=== PATIENT | female | born 1955 | race Caucasian/White ===

== ENCOUNTER 2016-12-20 05:43 | Emergency (ER) | payer OTHER ==
[2016-12-20] MEDS ORDERED: Sodium Chloride 0.9% 1000 ML 1,000 ML IV STA (06:15)
[2016-12-20] MEDS ORDERED: Sodium Chloride 0.9% 1000 ML 1,000 ML ONE (06:20)
--- NOTE | 2016-12-20 06:22 | ERPHSYRPT ---
- History of Present Illness Historian: patient Exam Limitations: no limitations Patient Subjective Stated Complaint: explosive diarrhea sinc e tuesday.. seen at urgent care on tuesday for same. states was a virus. no improvement since then. abdominal cramping, fever. Triage Nursing Assessment: arrives alert and oriented.. color pale, skin warm and dry. abdomen soft with + BS x4. cramping to mid abdomen. staets has had fever yesterday. states nausea with out vomiting. diarrhea is mucousy. Hx Tetanus, Diphtheria Vaccination/Date Given: Yes (2009) Hx Influenza Vaccination/Date Given: Yes Hx Pneumococcal Vaccination/Date Given: No Immunizations Up to Date: Yes <ANGEL YANG - Last Filed: 12/20/16 07:08> <ANGEL EDMOND - Last Filed: 12/20/16 07:50> - History of Present Illness Time Seen by Provider: 12/20/16 06:10 Physician History: FOR THE PAST 5 DAYS PT HAS HAD DECREASED APPETITE, SHARP DIFFUSE ABDOMINAL PAIN , NAUSEA, DIAPHORESIS, FRONTAL HEADACHE AND DIARRHEA WITH MUCOUS BUT WITHOUT BLOOD; FOR THE PAST 2 DAYS FEVER UP TO 101 DEGREES. (ANGEL YANG) Allergies/Adverse Reactions: acetaminophen [From Vicodin] Adverse Reaction (Mild, Verified 12/20/16 06:28) hydrocodone bitartrate [From Vicodin] Adverse Reaction (Mild, Verified 12/20/16 06:28) Home Medications: Aspirin [Aspir 81] 81 mg PO DAILY 09/29/11 [History] Atorvastatin Calcium [Lipitor 40Mg] 40 mg PO DAILY 06/28/15 [History] Clopidogrel Bisulfate 75 mg [PLAVIX 75 MG Tablet] 75 mg PO DAILY 06/28/15 [History] Glimepiride [Amaryl] 1 mg PO DAILY 12/20/16 [History] Lisinopril [Zestril] 2.5 mg PO DAILY 12/20/16 [History] Loratadine 10 mg [Claritin 10 mg] 10 mg PO DAILY 12/20/16 [History] Metoprolol Tartrate 25 mg PO BID 12/20/16 [History] - Review of Systems Constitutional: Fever, No Chills Respiratory: No Dyspnea Cardiac: No Chest Pain Abdominal/Gastrointestinal: Abdominal Pain, Nausea, Diarrhea, Appetite Changes ( DECREASED), No Vomiting Neurological: Headache Endocrine: Excessive Sweating All Other Systems: Reviewed and Negative <ANGEL YANG - Last Filed: 12/20/16 07:08> - Past Medical History Pertinent Past Medical History: Yes Neurological History: No Pertinent History ENT History: No Pertinent History Cardiac History: Hypertension, Myocardial Infarction ([place]) Respiratory History: No Pertinent History Endocrine Medical History: Diabetes Type II Musculoskeletal History: No Pertinent History, Arthritis GI Medical History: GERD History: No Pertinent History Psycho-Social History: No Pertinent History Female Reproductive Disorders: No Pertinent History - Past Surgical History Past Surgical History: Yes Neuro Surgical History: No Pertinent History Cardiac: Cardiac Catheterization, Cardiac Stent Respiratory: No Pertinent History Gastrointestinal: No Pertinent History Genitourinary: No Pertinent History Musculoskeletal: Joint Replacement Female Surgical History: Section, Tubal Ligation Other Surgical History: RIGHT HIP REPLACMENT left hip replacement - Social History Smoking Status: Never smoker How long have you smoked: 40 Exposure to second hand smoke: Yes Drug Use: none Patient Lives Alone: Yes - Female History Hx Now: No <ANGEL YANG - Last Filed: 12/20/16 07:08> - Physical Exam General Appearance: alert Eye Exam: PERRL/EOMI Ears, Nose, Throat Exam: dry mucous membranes, other (CERUMEN OCCLUSION OF LEFT EAC) Neck Exam: normal inspection Respiratory Exam: wheezing (SCATTERED WHEEZING) Cardiovascular Exam: normal heart sounds Gastrointestinal/Abdomen Exam: soft, other (B.S. MILDLY HYPERACTIVE AND NORMOTONIC) Back Exam: normal range of motion Extremity Exam: normal inspection Neurologic Exam: alert, cooperative Skin Exam: warm, dry SpO2 Interpretation: normal SpO2: 95 Oxygen Delivery: Room Air <ANGEL YANG - Last Filed: 12/20/16 07:08> <ANGEL EDMOND - Last Filed: 12/20/16 07:50> - Nursing Vital Signs Nursing Vital Signs: Initial Vital Signs Temperature 98.6 F 12/20/16 05:44 Respiratory Rate 18 12/20/16 05:44 Blood Pressure 151/76 12/20/16 05:44 O2 Sat by Pulse Oximetry 95 12/20/16 05:44 Pain Scale Pain Intensity 8 - Course Nursing assessment & vital signs reviewed: Yes <ANGEL YANG - Last Filed: 12/20/16 07:08> - CT Exams Abdomen/Pelvis CT Interpretation: Tele-radiologist Report, Other (minimal wall thickening in ascending, transverse, and descending colon with stranding concerning for colitits per Dr Emanuel.) <ANGEL EDMOND - Last Filed: 12/20/16 07:50> Ordered Tests: Active Orders 24 hr Category Date Time Status IV Insertion STAT Care 12/20/16 06:15 Active ABDOMEN AND PELVIS W/0 CONTRAS [CT] Stat Exams 12/20/16 06:16 Taken CHEST 2 VIEWS (PA AND LAT) Stat Exams 12/20/16 Taken AMYLASE Stat Lab 12/20/16 06:00 Completed CBC W DIFF Stat Lab 12/20/16 06:00 Completed CMP Stat Lab 12/20/16 06:00 Completed LIPASE Stat Lab 12/20/16 06:00 Completed MAG [MAGNESIUM] Stat Lab 12/20/16 06:00 Completed Manual Differential NC Stat Lab 12/20/16 06:00 Completed Occult Blood,Stool Other Stat Lab 12/20/16 06:44 Ordered UA W/RFX UR CULTURE Stat Lab 12/20/16 06:16 Ordered Respiratory Nebulizer STAT RT 12/20/16 07:09 Completed Medication Summary Generic Name Dose Route Start Last Admin Trade Name Freq PRN Reason Stop Dose Admin Potassium Chloride/Sodium Chloride 1,000 mls @ 500 mls/hr 12/20/16 07:00 07:09 Sodium Chloride 0.9% W/ 20 Meq Kcl/Liter IV 01/19/17 06:59 500 mls/hr .Q2H MARGARITA Administration Metronidazole 500 mg in 100 mls @ 200 mls/hr 12/20/16 07:33 Flagyl 500 Mg Ivpb IV 12/20/16 08:02 STAT STA Metronidazole 500 mg in 100 mls @ 200 mls/hr 12/20/16 07:35 Flagyl 500 Mg Ivpb IV 12/20/16 08:04 STAT STA Discontinued Medications Generic Name Dose Route Start Last Admin Trade Name Freq PRN Reason Stop Dose Admin Sodium Chloride 1,000 mls @ 999 mls/hr 12/20/16 06:15 12/20/16 06:22 Sodium Chloride 0.9% 1000 Ml IV 12/20/16 07:15 999 mls/hr .Q1H1M STA Administration Sodium Chloride Confirm 12/20/16 06:20 Sodium Chloride 0.9% 1000 Ml Administered 12/20/16 06:21 Dose 1,000 mls @ ud .ROUTE .STK-MED ONE Magnesium Sulfate/Dextrose 100 mls @ 200 mls/hr 12/20/16 07:00 12/20/16 07:09 Magnesium 1 Gm / 100 Ml D5w IV 12/20/16 07:29 200 mls/hr STAT ONE Administration Magnesium Sulfate/Dextrose Confirm 12/20/16 07:07 Magnesium 1 Gm / 100 Ml D5w Administered 12/20/16 07:08 Dose 100 mls @ ud IV .STK-MED ONE Levalbuterol HCl 1.25 mg 12/20/16 06:39 12/20/16 07:04 Xopenex 1.25 Mg/0.5 Ml Ud Nebule IH 12/20/16 06:40 1.25 mg STAT ONE Administration Levalbuterol HCl Confirm 12/20/16 07:02 Xopenex 1.25 Mg/0.5 Ml Ud Nebule Administered 12/20/16 07:03 Dose 1.25 mg IH .STK-MED ONE Ondansetron HCl 4 mg 12/20/16 07:36 Zofran 4 Mg/2 Ml Vial IV 12/20/16 07:37 STAT ONE Sodium Chloride Confirm 12/20/16 07:03 Sodium Chloride 3 Ml Ud Nebules Administered 12/20/16 07:04 Dose 3 ml IH .STK-MED ONE Lab/Rad Data: Laboratory Result Diagrams 12/20/16 06:00 12/20/16 06:00 Laboratory Results 12/20/16 12/20/16 12/20/16 Range/Units 06:00 06:00 06:00 WBC 9.5 (4.0-10.5) K/mm3 RBC 4.02 L (4.1-5.4) M/mm3 Hgb 11.9 L (12.0-16.0) gm/dl Hct 35.9 (35-47) % MCV 89.3 (78-100) fl MCH 29.6 (26-32) pg MCHC 33.1 (32-36) g/dl RDW 13.9 (11.5-14.0) % Plt Count 248 (150-450) K/mm3 MPV 10.7 H (6-9.5) fl Segmented Neutrophils 71 H (36.0-66.0) % Band Neutrophils 5 H (0.0-2.0) % Lymphocytes (Manual) 20 L (24-44) % Monocytes (Manual) 4 (0.0-12.0) % Differential Comment ABNORMAL Toxic Granulation 1+ Platelet Estimate NORMAL (NORMAL) Poikilocytosis 1+ Sodium 139 (136-145) mEq/L Potassium 3.1 L (3.5-5.1) mEq/L Chloride 102 (98-107) mEq/L Carbon Dioxide 23.6 (21-32) mEq/L Anion Gap 16.9 H (5-15) MEQ/L BUN 8 L (9-20) mg/dL Creatinine 1.01 (0.55-1.30) mg/dl Estimated GFR 59 ML/MIN Glucose 114 H (70-110) MG/DL Calcium 9.0 (8.5-10.1) mg/dL Magnesium 1.2 L (1.8-2.4) mg/dL Total Bilirubin 0.30 (0.2-1.0) mg/dL AST 19 (15-37) U/L ALT 32 (12-78) U/L Alkaline Phosphatase 72 (46-116) U/L Serum Total Protein 7.1 (6.4-8.2) gm/dL Albumin 3.1 L (3.4-5.0) g/dL Amylase 32 (25-115) U/L Lipase 104 (73-393) U/L <ANGEL YANG - Last Filed: 12/20/16 07:08> - Progress Progress: unchanged Counseled pt/family regarding: lab results, diagnosis, need for follow-up, rad results <ANGEL EDMOND - Last Filed: 12/20/16 07:50> - Progress Progress Note: 12/20/16 07:25 Pt care discussed and care accepted from Dr Yang at 07:00. (ANGEL EDMOND) <ANGEL YANG - Last Filed: 12/20/16 07:08> - Departure Time of Disposition: 07:50 Departure Disposition: Home Critical Care Time: No <ANGEL EDMOND - Last Filed: 12/20/16 07:50> - Departure Clinical Impression: Colitis, Hypokalemia, Hypomagnesemia, Wheezing Condition: Stable Referrals: YUDITH FARRELL [Primary Care Provider] - Additional Instructions: Your diarrhea is caused by colitis. You were given metronidazole 1000 mg by IV. Your magnesium level and potassium level were also slightly low. You were given magnesium 1 g and potassium by IV. You were also given Zofran 4 mg by IV. Take metronidazole 500 mg 3 times a day for 10 days. Take Zofran 4 mg ODT every 6 hours as needed. You also had wheezing in her lungs. You were given a breathing treatment in the ER. Follow-up in one to 2 days. Prescriptions: Ondansetron ODT 4 MG [Zofran Odt 4 mg] 1 tab PO Q6H PRN PRN #10 tab.rapdis PRN Reason: Nausea/Vomiting Metronidazole 500 mg PO TID #30 tablet
[2016-12-20 06:25] LABS: Mean Cell Volume 89.3 fl (78-100); Mean Corpuscular Hemoglobin 29.6 pg (26-32); Mean Platelet Volume 10.7 fl (6-9.5); Platelet Count 248 K/mm3 (150-450); Red Blood Count 4.02 M/mm3 (4.1-5.4); Red Cell Distribution Width 13.9 % (11.5-14.0); White Blood Count 9.5 K/mm3 (4.0-10.5)
[2016-12-20] MEDS ORDERED: Xopenex 1.25 MG/0.5 ML UD NEBULE IH ONE ×2 (06:39→07:02)
[2016-12-20 06:41] LABS: ALBUMIN 3.1 g/dL (3.4-5.0); ANION GAP 16.9 MEQ/L (5-15); BILIRUBIN,TOTAL 0.3 mg/dL (0.2-1.0); Carbon Dioxide 23.6 mEq/L (21-32); Potassium 3.1 mEq/L (3.5-5.1); Total Protein 7.1 gm/dL (6.4-8.2)
[2016-12-20 06:45] LABS: BAND 5 % (0.0-2.0); Total Cells Counted 100
[2016-12-20 06:46] LABS: Poikilocytosis 1+
[2016-12-20 06:47] LABS: Platelet Estimate NORMAL (NORMAL); Toxic Granulation 1+
[2016-12-20] MEDS ORDERED: Magnesium 1 Gm / 100 Ml D5W*** 100 ML IV ONE ×2 (07:00→07:07)
[2016-12-20] MEDS ORDERED: Sodium Chloride 0.9% W/ 20 mEq KCl/LITER 1,000 ML IV SCH (07:00)
[2016-12-20] MEDS ORDERED: Sodium Chloride 3 ML UD NEBULES IH ONE (07:03)
[2016-12-20] MEDS ORDERED: Sodium Chloride 0.9% W/ 20 mEq KCl/LITER 1,000 ML IV ONE (07:08)
[2016-12-20] MEDS ORDERED: FLAGYL 500 MG IVPB 500 MG/100 ML BAG IV STA ×2 (07:33→07:35)
[2016-12-20] MEDS ORDERED: Zofran 4 MG/2 ML VIAL IV ONE (07:36)
[2016-12-20] MEDS ORDERED: Zofran 4 MG/2 ML VIAL ONE (07:41)
[2016-12-20] MEDS ORDERED: FLAGYL IV ONE (07:41)
--- NOTE | 2016-12-20 08:47 | XRAY ---
Indication: Nausea, vomiting, diarrhea, fever, wheezing, and weakness. Comparison: June 28, 2015. PA/lateral chest again hyperinflated with stable noncalcified indeterminant right upper lobe noncalcified nodule. Remaining heart and lungs normal. Bony thorax intact. Impression: Stable indeterminate right upper lobe nodule detailed on CT chest December 16, 2014. No new/acute findings.
--- NOTE | 2016-12-20 08:50 | XRAY ---
Indication: Mid abdominal pain, fever, nausea, vomiting, diarrhea, and weakness. Multiple contiguous axial images obtained through the abdomen and pelvis without contrast as ordered. Comparison: None Minimal fibrosis/scarring in both lung bases. Heart is not enlarged. Noncontrasted stomach and bowel loops appear nonobstructed. There is minimal colonic wall thickening with minimal stranding greatest in the right hemicolon concerning for colitis. Minimal sigmoid diverticulosis. Normal air-filled appendix. No free fluid/air. Bilateral hip prosthesis produces extreme beam artifact limiting these levels. Gallbladder is distended with tiny gallstone/gravel. Remaining liver, pancreas, spleen, adrenal glands, kidneys, ureters, bladder, uterus appear unremarkable for noncontrast exam. Mild scattered vascular calcifications. No AAA. Osseous structures intact with moderate degenerative changes throughout the spine including L4 3-4 mm spondylolisthesis without spondylolysis. Impression: 1. Minimal colonic wall thickening/stranding. Rule out colitis. 2. Distended gallbladder with tiny gallstones/gravel. Gallbladder sonogram may yield further information if clinically warranted. 3. Minimal sigmoid diverticulosis. 4. L4 grade [address] DI 23.40
[2016-12-20 09:24] VITALS: BP 140/77; PULSE 70; O2SAT 98
[2016-12-20 10:22] LABS: Bilirubin NEGATIVE (NEGATIVE); Blood 50 Ery/ul (0-5); COMPLETE URINE MICROSCOPIC? YES; Collection Type VOID; Glucose NEGATIVE (NEGATIVE); Leukocyte Esterase TRACE (NEGATIVE)
[2016-12-20 10:23] LABS: ADD URINE CULTURE? YES (NO); Bacteria FEW /HPF (NEGATIVE); Epithelial Cells FEW /HPF (FEW); Mucus SLIGHT /HPF (NEGATIVE)
== END 2016-12-20 09:28 | disposition home or self-care (01) ==
LOC: ED 05:43
DX: K52.9 Noninfective gastroenteritis and colitis, unspecified (principal); E87.6 Hypokalemia; E83.42 Hypomagnesemia; R06.2 Wheezing; R19.7 Diarrhea, unspecified; R11.0 Nausea; R51 Headache; R50.9 Fever, unspecified; R61 Generalized hyperhidrosis; R10.9 Unspecified abdominal pain; R63.0 Anorexia; Z79.899 Other long term (current) drug therapy; E11.9 Type 2 diabetes mellitus without complications; I10 Essential (primary) hypertension; I25.2 Old myocardial infarction; Z98.61 Coronary angioplasty status
CPT/HCPCS: 36000; 36415; 71020; 74176; 80053; 81000; 82150; 82272; 83690; 83735; 85025; 87086; 94640; 96360; 96361; 96365; 96367; 96368; 96374; 99284; J2405; J3475; A9270-GY

== ENCOUNTER 2018-03-14 12:28 | Emergency (ER) | payer OTHER ==
--- NOTE | 2018-03-14 12:48 | ERPHSYRPT ---
- History of Present Illness Time Seen by Provider: 03/14/18 12:40 Source: patient Exam Limitations: no limitations Physician History: 62 y/o white female presents with 9 month h/o low back pain. pain shoots into bilat buttock. no acute injury. pts pcp is aware as is her pain management dr. she no longer sees a pain specialist. was not helping. pt undergoing physical therapy. 4 days ago her lbp worsened. she only takes ibuprofen. incidentally, pts bp elevated today. pts pcp aware. he made a change 5 days ago. pt takes lisinopril and metoprolol. for her htn. she has no headache, visual changes or cp. Timing/Duration: day(s), other (chronic for 9 months worsen in last 4 days) Method of Injury: other (no injury) Quality: aching Back Pain Location: lumbar spine Back Pain Radiation: buttocks Severity of Pain-Max: moderate Severity of Pain-Current: moderate Modifying Factors: Improves With: movement (worsens) Associated Symptoms: denies symptoms Previous symptoms: same symptoms as today Allergies/Adverse Reactions: acetaminophen [From Vicodin] Adverse Reaction (Mild, Verified 03/14/18 12:39) hydrocodone bitartrate [From Vicodin] Adverse Reaction (Mild, Verified 03/14/18 12:39) Home Medications: Aspirin [Aspir 81] 81 mg PO DAILY 09/29/11 [History] Atorvastatin Calcium [Lipitor 40Mg] 40 mg PO DAILY 06/28/15 [History] Clopidogrel Bisulfate 75 mg [PLAVIX 75 MG Tablet] 75 mg PO DAILY 06/28/15 [History] Glimepiride [Amaryl] 2 mg PO DAILY 12/20/16 [History] Lisinopril [Zestril] 20 mg PO DAILY 12/20/16 [History] Loratadine 10 mg [Claritin 10 mg] 10 mg PO DAILY 12/20/16 [History] Metoprolol Tartrate 25 mg PO BID 12/20/16 [History] Ibuprofen [Ibu] 800 mg PO Q4HPRN PRN 03/14/18 [History] Hx Tetanus, Diphtheria Vaccination/Date Given: Yes (2009) Hx Influenza Vaccination/Date Given: Yes Hx Pneumococcal Vaccination/Date Given: No - Review of Systems Constitutional: No Symptoms Eyes: No Symptoms Ears, Nose, & Throat: No Symptoms Respiratory: No Symptoms Cardiac: No Symptoms Abdominal/Gastrointestinal: No Symptoms Genitourinary Symptoms: No Symptoms Musculoskeletal: Back Pain Skin: No Symptoms Neurological: No Symptoms Psychological: No Symptoms Endocrine: No Symptoms Hematologic/Lymphatic: No Symptoms Immunological/Allergic: No Symptoms All Other Systems: Reviewed and Negative - Past Medical History Pertinent Past Medical History: Yes Neurological History: No Pertinent History ENT History: No Pertinent History Cardiac History: Coronary Artery Disease, High Cholesterol, Hypertension, Myocardial Infarction ([place]) Respiratory History: No Pertinent History Endocrine Medical History: Diabetes Type II Musculoskeletal History: Degenerative Disk Disease, Osteoarthritis GI Medical History: GERD History: No Pertinent History Psycho-Social History: No Pertinent History Female Reproductive Disorders: No Pertinent History Other Medical History: Bilateral total hip arthroplasty left 09/2016, right 2015. Hx of stent placement x 2 approximately 6 years ago. - Past Surgical History Past Surgical History: Yes Neuro Surgical History: No Pertinent History Cardiac: Cardiac Catheterization, Cardiac Stent Respiratory: No Pertinent History Gastrointestinal: No Pertinent History Genitourinary: No Pertinent History Musculoskeletal: Joint Replacement Female Surgical History: Section, Tubal Ligation Other Surgical History: RIGHT HIP REPLACMENT left hip replacement - Social History Smoking Status: Never smoker How long have you smoked: 40 Exposure to second hand smoke: Yes Drug Use: none Patient Lives Alone: Yes - Nursing Vital Signs Nursing Vital Signs: Initial Vital Signs Temperature 97.8 F 03/14/18 12:42 Pulse Rate 75 03/14/18 12:42 Respiratory Rate 16 03/14/18 12:42 Blood Pressure 232/114 03/14/18 12:42 O2 Sat by Pulse Oximetry 95 03/14/18 12:42 Pain Scale Pain Intensity [Back] 10 Pain Intensity 4 - Physical Exam General Appearance: mild distress, alert, anxiety Eye Exam: PERRL/EOMI, eyes nml inspection Ears, Nose, Throat Exam: normal ENT inspection, moist mucous membranes Neck Exam: normal inspection, non-tender, supple, full range of motion Respiratory Exam: normal breath sounds, lungs clear, airway intact, No chest tenderness, No respiratory distress, No accessory muscle use, No rhonchi, No wheezing, No stridor Cardiovascular Exam: regular rate/rhythm, normal heart sounds, normal peripheral pulses Gastrointestinal Exam: soft, normal bowel sounds, No tenderness, No rebound Pelvic Exam: not done Rectal Exam: not done Back Exam: normal inspection, normal range of motion, No CVA tenderness, No vertebral tenderness Extremity Exam: normal inspection, normal range of motion, pelvis stable Neurologic Exam: alert, oriented x 3, cooperative, 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 as tested Skin Exam: normal color, warm, dry Lymphatic Exam: No adenopathy SpO2 Interpretation: normal Oxygen Delivery: Room Air - Course Nursing assessment & vital signs reviewed: Yes EKG Interpreted by Me: RATE (76), Sinus Rhythm, NORMAL AXIS, NORMAL INTERVALS, NORMAL QRS, Other (no acute ischemic changes) Ordered Tests: Active Orders 24 hr Category Date Time Status EKG-ER Only STAT Care 03/14/18 13:18 Active IV Insertion STAT Care 03/14/18 13:18 Active CBC W DIFF Stat Lab 03/14/18 13:40 Completed CMP Stat Lab 03/14/18 13:40 Completed PROTIME WITH INR Stat Lab 03/14/18 13:40 Received TROPONIN Q3H Lab 03/14/18 13:40 Completed TROPONIN Q3H Lab 03/14/18 16:30 Ordered TROPONIN Q3H Lab 03/14/18 19:30 Ordered TROPONIN Q3H Lab 03/14/18 22:30 Ordered TROPONIN Q3H Lab 03/15/18 01:30 Ordered Oxygen NASAL CANNULA 2 lpm RT 03/14/18 14:02 Active Medication Summary Discontinued Medications Generic Name Dose Route Start Last Admin Trade Name Freq PRN Reason Stop Dose Admin Enalaprilat 1.25 mg 03/14/18 13:27 03/14/18 13:50 Vasotec I.V. 2.5 Mg IV 03/14/18 13:28 1.25 mg STAT ONE Administration Enalaprilat Confirm 03/14/18 13:48 Vasotec I.V. 2.5 Mg Administered 03/14/18 13:49 Dose 2.5 mg IV .STK-MED ONE Hydromorphone HCl 1 mg 03/14/18 13:04 03/14/18 13:56 Hydromorphone 1 Mg/Ml Ampule IM 03/14/18 13:05 Not Given STAT ONE Hydromorphone HCl Confirm 03/14/18 13:14 Hydromorphone 1 Mg/Ml Ampule Administered 03/14/18 13:15 Dose 1 mg .ROUTE .STK-MED ONE Hydromorphone HCl 1 mg 03/14/18 13:24 03/14/18 13:50 Hydromorphone 1 Mg/Ml Ampule IV 03/14/18 13:25 1 mg STAT ONE Administration Methylprednisolone Sodium Succinate 125 mg 03/14/18 13:10 03/14/18 13:56 Solu-Medrol 125 Mg IM 03/14/18 13:11 Not Given STAT ONE Methylprednisolone Sodium Succinate Confirm 03/14/18 13:14 Solu-Medrol 125 Mg Administered 03/14/18 13:15 Dose 125 mg .ROUTE .STK-MED ONE Methylprednisolone Sodium Succinate 125 mg 03/14/18 13:26 03/14/18 13:49 Solu-Medrol 125 Mg IV 03/14/18 13:27 125 mg STAT ONE Administration Orphenadrine Citrate 60 mg 03/14/18 13:07 03/14/18 13:56 Norflex 60 Mg/2 Ml IM 03/14/18 13:08 Not Given STAT ONE Orphenadrine Citrate Confirm 03/14/18 13:14 Norflex 60 Mg/2 Ml Administered 03/14/18 13:15 Dose 60 mg .ROUTE .STK-MED ONE Orphenadrine Citrate 60 mg 03/14/18 13:28 03/14/18 13:50 Norflex 60 Mg/2 Ml IV 03/14/18 13:29 60 mg STAT ONE Administration Promethazine HCl 12.5 mg 03/14/18 13:04 03/14/18 13:56 Phenergan 25 Mg Inj IM 03/14/18 13:05 Not Given STAT ONE Promethazine HCl Confirm 03/14/18 13:13 Phenergan 25 Mg Inj Administered 03/14/18 13:14 Dose 25 mg .ROUTE .STK-MED ONE Promethazine HCl 12.5 mg 03/14/18 13:24 03/14/18 13:50 Phenergan 25 Mg Inj IV 03/14/18 13:25 12.5 mg STAT ONE Administration Lab/Rad Data: Laboratory Result Diagrams 03/14/18 13:40 03/14/18 13:40 Laboratory Results 03/14/18 03/14/18 03/14/18 Range/Units 13:40 13:40 13:40 WBC 6.1 (4.0-10.5) K/mm3 RBC 4.23 (4.1-5.4) M/mm3 Hgb 12.8 (12.0-16.0) gm/dl Hct 38.5 (35-47) % MCV 91.0 (78-100) fl MCH 30.3 (26-32) pg MCHC 33.2 (32-36) g/dl RDW 13.5 (11.5-14.0) % Plt Count 212 (150-450) K/mm3 MPV 11.1 H (6-9.5) fl Gran % 71.4 H (36.0-66.0) % Eos # (Auto) 0.11 (0-0.5) Absolute Lymphs (auto) 1.04 (1.0-4.6) Absolute Monos (auto) 0.58 (0.0-1.3) Lymphocytes % 17.0 L (24.0-44.0) % Monocytes % 9.5 (0.0-12.0) % Eosinophils % 1.8 (0.00-5.0) % Basophils % 0.3 (0.0-0.4) % Absolute Granulocytes 4.36 (1.4-6.9) Basophils # 0.02 (0-0.4) Sodium 138 (137-145) mmol/L Potassium 4.6 (3.5-5.1) mmol/L Chloride 102 (98-107) mmol/L Carbon Dioxide 27 (22-30) mmol/L Anion Gap 14.2 (5-15) MEQ/L BUN 18 H (7-17) mg/dL Creatinine 1.00 (0.52-1.04) mg/dL Estimated GFR 59.5 ML/MIN Glucose 83 (74-106) mg/dL Calcium 9.3 (8.4-10.2) mg/dL Total Bilirubin 0.40 (0.2-1.3) mg/dL AST 22 (14-36) U/L ALT 22 (0-35) U/L Alkaline Phosphatase 75 (38-126) U/L Troponin I < 0.012 (0.000-0.034) ng/mL Serum Total Protein 7.4 (6.3-8.2) g/dL Albumin 4.3 (3.5-5.0) g/dL - Progress Progress: improved, re-examined Counseled pt/family regarding: lab results, diagnosis, need for follow-up - Departure Time of Disposition: 14:58 Departure Disposition: Home Clinical Impression: Severe hypertension, Low back pain Condition: Stable Critical Care Time: Yes Critical Care Time(excluding separately billable procedures): 30-74 minutes Referrals: ANETTE PICKENS MD [Primary Care Provider] - Additional Instructions: follow up tomorrow with your prescribing doctor for further management of your blood pressure and back pain. take your medications as prescribed. Prescriptions: Carisoprodol 350 mg [Soma 350 mg] 350 mg PO Q8H PRN PRN #10 tablet PRN Reason: Muscle Spasms Prednisone 10 mg [Deltasone 10 mg] 10 mg PO TID #12 tablet
[2018-03-14] MEDS ORDERED: Phenergan 25 MG INJ IM ONE (13:04)
[2018-03-14] MEDS ORDERED: Hydromorphone 1 mg/ml Ampule IM ONE (13:04)
[2018-03-14] MEDS ORDERED: Norflex 60 MG/2 ML IM ONE (13:07)
[2018-03-14] MEDS ORDERED: solu-MEDROL 125 MG IM ONE (13:10)
[2018-03-14] MEDS ORDERED: Phenergan 25 MG INJ ONE (13:13)
[2018-03-14] MEDS ORDERED: Norflex 60 MG/2 ML ONE (13:14)
[2018-03-14] MEDS ORDERED: solu-MEDROL 125 MG ONE (13:14)
[2018-03-14] MEDS ORDERED: Hydromorphone 1 mg/ml Ampule ONE (13:14)
[2018-03-14] MEDS ORDERED: Hydromorphone 1 mg/ml Ampule IV ONE (13:24)
[2018-03-14] MEDS ORDERED: Phenergan 25 MG INJ IV ONE (13:24)
[2018-03-14] MEDS ORDERED: solu-MEDROL 125 MG IV ONE (13:26)
[2018-03-14] MEDS ORDERED: VASOTEC I.V. 2.5 MG IV ONE ×2 (13:27→13:48)
[2018-03-14] MEDS ORDERED: Norflex 60 MG/2 ML IV ONE (13:28)
[2018-03-14 14:21] LABS: BASOPHIL % 0.3 % (0.0-0.4); Basophil (Absolute #) 0.02 (0-0.4); Eosinophil % 1.8 % (0.00-5.0); Eosinophil (Absolute #) 0.11 (0-0.5); Granulocyte Absolute (ANC) 4.36 (1.4-6.9); Granulocytes % 71.4 % (36.0-66.0); Hematocrit 38.5 % (35-47); Hemoglobin 12.8 gm/dl (12.0-16.0); Lymphocyte (Absolute #) 1.04 (1.0-4.6); Mean Corpuscular Hemoglobin 30.3 pg (26-32); Mean Corpuscular Hgb Concent. 33.2 g/dl (32-36); Mean Platelet Volume 11.1 fl (6-9.5); Monocyte (Absolute #) 0.58 (0.0-1.3); Monocytes % 9.5 % (0.0-12.0); Platelet Count 212 K/mm3 (150-450); Red Blood Count 4.23 M/mm3 (4.1-5.4); Red Cell Distribution Width 13.5 % (11.5-14.0); White Blood Count 6.1 K/mm3 (4.0-10.5)
[2018-03-14 14:33] LABS: ALBUMIN 4.3 g/dL (3.5-5.0); ANION GAP 14.2 MEQ/L (5-15); BILIRUBIN,TOTAL 0.4 mg/dL (0.2-1.3); Calcium 9.3 mg/dL (8.4-10.2); Potassium 4.6 mmol/L (3.5-5.1); Total Protein 7.4 g/dL (6.3-8.2)
[2018-03-14 14:35] VITALS: O2SAT 98
[2018-03-14 15:09] LABS: INR 0.97 (0.8-3.0)
[2018-03-14 16:06] VITALS: BP 169/90; PULSE 79
== END 2018-03-14 16:06 | disposition home or self-care (01) ==
LOC: ED 12:28
DX: M54.5 Low back pain (principal); I10 Essential (primary) hypertension; Z79.899 Other long term (current) drug therapy; Z79.01 Long term (current) use of anticoagulants
CPT/HCPCS: 36000; 36415; 80053; 84484; 85025; 85610; 93005; 93041; 96374; 96375; 99284; J1170; J2360; J2550; J2930

== ENCOUNTER 2019-02-07 11:34 | Day surgery (SDC) | payer OTHER ==
[2019-02-07] MEDS ORDERED: Depo-Medrol 40 MG/ML IM ONE (11:35)
[2019-02-07] MEDS ORDERED: Xylocaine 1% Vial 30 ML PF IJ ONE (11:35)
[2019-02-07] MEDS ORDERED: Sodium Chloride 0.9(Preservative Free) 10 ML IJ ONE (11:35)
[2019-02-07] MEDS ORDERED: DIPRIVAN 200 MG/20 ML IV ONE (13:22)
[2019-02-07] MEDS ORDERED: Ketamine HCl 50 MG/ML ONE (13:22)
--- NOTE | 2019-02-07 14:55 | XRAY ---
Indication: Lumbar MELISSA. Intraoperative fluoroscopy was provided for 32 seconds. 3 digital spot images submitted for interpretation demonstrates midline needle tip just posterior to the L4-L5 interspace. Small amount of contrast injected for needle tip placement. Correlate with intraoperative findings/report.
--- NOTE | 2019-02-07 16:28 | XRAY ---
32 seconds fluoroscopy time in surgery for lumbar MELISSA.
[2019-02-07] MEDS ORDERED: Lactated Ringers 1,000 ML IV ONE (18:21)
== END 2019-02-07 13:59 | disposition home or self-care (01) ==
LOC: SDC-PAIN 11:34
PROVIDERS: ATTEND Psychiatry & Neurology Pain Medicine
DX: M54.16 Radiculopathy, lumbar region (principal); I10 Essential (primary) hypertension; E78.5 Hyperlipidemia, unspecified; F32.9 Major depressive disorder, single episode, unspecified; I25.10 Atherosclerotic heart disease of native coronary artery without angina pectoris; Z79.899 Other long term (current) drug therapy
CPT/HCPCS: 62323; 72100; 77003; 82962; J1030; J2001; J2704; Q9966

== ENCOUNTER 2019-03-14 07:43 | Day surgery (SDC) | payer OTHER ==
[2019-03-14] MEDS ORDERED: Xylocaine-Mpf 2% 5 Ml Vial IJ ONE (07:44)
[2019-03-14] MEDS ORDERED: Depo-Medrol 40 MG/ML IM ONE (07:44)
[2019-03-14] MEDS ORDERED: Ketamine HCl 50 MG/ML ONE (09:41)
[2019-03-14] MEDS ORDERED: DIPRIVAN 200 MG/20 ML IV ONE (09:41)
--- NOTE | 2019-03-14 11:02 | XRAY ---
Indication: Bilateral L4-S1 MBB. Intraoperative fluoroscopy was provided for 4 seconds. Single digital spot image submitted for interpretation demonstrates posterior needle tips projecting over the expected course of the left and right L4-S1 nerve roots. Correlate with intraoperative findings/report.
--- NOTE | 2019-03-14 11:06 | XRAY ---
4 seconds fluoroscopy time in surgery for bilateral L4-S1 MBB.
[2019-03-14] MEDS ORDERED: Lactated Ringers 1,000 ML IV ONE (16:00)
== END 2019-03-14 10:02 | disposition home or self-care (01) ==
LOC: SDC-PAIN 07:43
PROVIDERS: ATTEND Psychiatry & Neurology Pain Medicine
DX: M47.816 Spondylosis without myelopathy or radiculopathy, lumbar region (principal); I10 Essential (primary) hypertension; E78.5 Hyperlipidemia, unspecified; I25.10 Atherosclerotic heart disease of native coronary artery without angina pectoris; F41.8 Other specified anxiety disorders; Z79.899 Other long term (current) drug therapy
CPT/HCPCS: 64493; 64494; 72020; 77002; 82962; J1030; J2704

== ENCOUNTER 2019-04-11 07:47 | Day surgery (SDC) | payer OTHER ==
[2019-04-11] MEDS ORDERED: Marcaine 0.5% SDV 10 ML IJ ONE (07:48)
[2019-04-11] MEDS ORDERED: Depo-Medrol 40 MG/ML IM ONE (07:48)
[2019-04-11] MEDS ORDERED: DIPRIVAN 200 MG/20 ML IV ONE (09:46)
[2019-04-11] MEDS ORDERED: Ketamine HCl 50 MG/ML ONE (09:46)
--- NOTE | 2019-04-11 10:54 | XRAY ---
Indication: Bilateral L4-S1 MBB. Intraoperative fluoroscopy was provided for 7 seconds. Single digital spot image submitted for interpretation demonstrates posterior needle tips projecting over the expected course of the left and right L4-S1 nerve roots. Correlate with intraoperative findings/report.
--- NOTE | 2019-04-11 10:56 | XRAY ---
7 seconds of fluoroscopy was used in surgery for a bilateral L4-L5 and L5-S1 MBB.
[2019-04-11] MEDS ORDERED: Lactated Ringers 1,000 ML IV ONE (15:28)
== END 2019-04-11 10:10 | disposition home or self-care (01) ==
LOC: SDC-PAIN 07:47
PROVIDERS: ATTEND Psychiatry & Neurology Pain Medicine
DX: M47.816 Spondylosis without myelopathy or radiculopathy, lumbar region (principal); I10 Essential (primary) hypertension; E11.9 Type 2 diabetes mellitus without complications; E78.5 Hyperlipidemia, unspecified; F41.8 Other specified anxiety disorders; Z79.899 Other long term (current) drug therapy; I25.10 Atherosclerotic heart disease of native coronary artery without angina pectoris
CPT/HCPCS: 64493; 64494; 72020; 77002; 82962; J1030; J2704

== ENCOUNTER 2019-05-30 11:41 | Day surgery (SDC) | payer OTHER ==
[2019-05-30] MEDS ORDERED: Marcaine 0.5% SDV 10 ML IJ ONE (11:42)
[2019-05-30] MEDS ORDERED: Xylocaine 1% Vial 30 ML PF IJ ONE (11:42)
[2019-05-30] MEDS ORDERED: Depo-Medrol 40 MG/ML IM ONE (11:42)
[2019-05-30] MEDS ORDERED: DIPRIVAN 200 MG/20 ML IV ONE (13:02)
[2019-05-30] MEDS ORDERED: Ketamine HCl 50 MG/ML ONE (13:03)
[2019-05-30] MEDS ORDERED: Lactated Ringers 1,000 ML IV ONE (13:42)
--- NOTE | 2019-05-30 14:12 | XRAY ---
Indication: Left L4-S1 RFA. Intraoperative fluoroscopy was provided for 16 seconds. 3 digital spot images submitted for interpretation demonstrates posterior needle tips projecting over the expected course of the left L4-S1 nerve roots. Correlate with intraoperative findings/report.
--- NOTE | 2019-05-30 14:16 | XRAY ---
16 seconds fluoroscopy time in surgery for left L4-S1 RFA.
== END 2019-05-30 13:42 | disposition home or self-care (01) ==
LOC: SDC-PAIN 11:41
PROVIDERS: ATTEND Psychiatry & Neurology Pain Medicine
DX: M47.816 Spondylosis without myelopathy or radiculopathy, lumbar region (principal); M47.817 Spondylosis without myelopathy or radiculopathy, lumbosacral region; I10 Essential (primary) hypertension; E11.9 Type 2 diabetes mellitus without complications; E78.5 Hyperlipidemia, unspecified; I25.10 Atherosclerotic heart disease of native coronary artery without angina pectoris; Z79.899 Other long term (current) drug therapy
CPT/HCPCS: 64635; 64636; 72100; 77002; 82962; J1030; J2001; J2704

== ENCOUNTER 2019-06-13 08:35 | Day surgery (SDC) | payer OTHER ==
[2019-06-13] MEDS ORDERED: Marcaine 0.5% SDV 10 ML IM ONE (08:36)
[2019-06-13] MEDS ORDERED: Depo-Medrol 40 MG/ML IM ONE (08:36)
[2019-06-13] MEDS ORDERED: Xylocaine 1% Vial 30 ML PF IJ ONE (08:36)
[2019-06-13] MEDS ORDERED: DIPRIVAN 200 MG/20 ML IV ONE (10:30)
[2019-06-13] MEDS ORDERED: Ketamine HCl 50 MG/ML ONE (10:31)
[2019-06-13] MEDS ORDERED: Lactated Ringers 1,000 ML IV ONE (11:47)
--- NOTE | 2019-06-13 11:57 | XRAY ---
18 seconds fluoroscopy time in surgery for right L4-S1 RFA.
--- NOTE | 2019-06-13 11:59 | XRAY ---
Indication: Right L4-S1 RFA. Intraoperative fluoroscopy was provided for 18 seconds. 3 digital spot images submitted for interpretation demonstrates posterior needle tips projecting over the expected course of the right L4-S1 nerve roots. Correlate with intraoperative findings/report.
== END 2019-06-13 11:05 | disposition home or self-care (01) ==
LOC: SDC-PAIN 08:35
PROVIDERS: ATTEND Psychiatry & Neurology Pain Medicine
DX: M47.816 Spondylosis without myelopathy or radiculopathy, lumbar region (principal); M47.817 Spondylosis without myelopathy or radiculopathy, lumbosacral region; E11.9 Type 2 diabetes mellitus without complications; I10 Essential (primary) hypertension; E78.5 Hyperlipidemia, unspecified; E78.00 Pure hypercholesterolemia, unspecified; F41.8 Other specified anxiety disorders; I25.10 Atherosclerotic heart disease of native coronary artery without angina pectoris
CPT/HCPCS: 64635; 64636; 72100; 77002; 82962; J1030; J2001; J2704

== ENCOUNTER 2020-06-06 08:04 | Emergency (ER) | payer MEDICARE ==
--- NOTE | 2020-06-06 08:29 | ERPHSYRPT ---
- History of Present Illness Time Seen by Provider: 06/06/20 08:15 Source: patient Exam Limitations: no limitations Patient Subjective Stated Complaint: abn labs. states Dr Olvera called her and told her to come to ED for critical postassium. no complaints at this time. labs last drawn Tuesday this week Triage Nursing Assessment: pt to ED stating that her bench jeweler sent her here for critical potassium levels. pt states she has no complaints now and feels at her baseline. no CP. heart sounds clear. lungs clear and equal bilaterally. Physician History: This is a 64-year-old white female who has a history of COPD, history of low potassium, history of low magnesium level as well as diabetes and hypertension who is asymptomatic and presents to the emergency department at the direction of her bench jeweler Dr. Lopez because of abnormal labs. Patient's primary care doctor is Dr. Pickens. I reviewed the patient's most recent labs at this institution on 06/04/2020. Her sodium is 126. Most recently, her sodium has been 133. Her potassium level on the same date is 5.5. Magnesium level is 1.2 from the same date. Again, the patient does not have any symptoms. Patient has not changed her drug regimen. Patient states that she has not had any blood drawn since 06/04/2020. Patient states that she did take her medication this morning. Timing/Duration: today Modifying Factors: Improves With: nothing Associated Symptoms: denies symptoms Allergies/Adverse Reactions: gabapentin Allergy (Mild, Verified 06/06/20 08:26) Itching Home Medications: Aspirin [Aspir 81] 81 mg PO DAILY 09/29/11 [History] Atorvastatin Calcium [Lipitor 40Mg] 40 mg PO DAILY 06/28/15 [History] Clopidogrel Bisulfate 75 mg [PLAVIX 75 MG Tablet] 75 mg PO DAILY 06/28/15 [History] Glimepiride [Amaryl] 2 mg PO DAILY 12/20/16 [History] Loratadine 10 mg [Claritin 10 mg] 10 mg PO DAILY 12/20/16 [History] Metoprolol Tartrate 25 mg PO BID 12/20/16 [History] lisinopriL [Zestril] 20 mg PO DAILY 12/20/16 [History] Amlodipine Besylate [Norvasc] 2.5 mg PO DAILY 06/06/20 [History] Hydrocodone/Acetaminophen [Hydrocodone-Acetamin 5-325 mg ] 1 tab PO BID 06/06/20 [History] Omeprazole 20 mg PO DAILY 06/06/20 [History] Hx Tetanus, Diphtheria Vaccination/Date Given: Yes Hx Influenza Vaccination/Date Given: Yes Hx Pneumococcal Vaccination/Date Given: Yes Immunizations Up to Date: Yes Travel Risk - International Travel Have you traveled outside of the country in past 3 weeks: No - Coronavirus Screening Are you exhibiting any of the following symptoms?: No Close contact with a COVID-19 positive Pt in past 14-21 Days: No - Review of Systems Constitutional: No Symptoms Eyes: No Symptoms Ears, Nose, & Throat: No Symptoms Respiratory: No Symptoms Cardiac: No Symptoms Abdominal/Gastrointestinal: No Symptoms Genitourinary Symptoms: No Symptoms Musculoskeletal: No Symptoms Skin: No Symptoms Neurological: No Symptoms Psychological: No Symptoms Endocrine: No Symptoms Hematologic/Lymphatic: No Symptoms Immunological/Allergic: No Symptoms All Other Systems: Reviewed and Negative - Past Medical History Pertinent Past Medical History: Yes Neurological History: No Pertinent History ENT History: No Pertinent History Cardiac History: High Cholesterol, Hypertension Respiratory History: No Pertinent History Endocrine Medical History: Diabetes Type II Musculoskeletal History: No Pertinent History GI Medical History: GERD History: No Pertinent History Psycho-Social History: No Pertinent History Female Reproductive Disorders: No Pertinent History Other Medical History: R ESE 2013. L ESE 2015 - Past Surgical History Past Surgical History: Yes Neuro Surgical History: No Pertinent History Cardiac: Cardiac Catheterization, Cardiac Stent Respiratory: No Pertinent History Gastrointestinal: No Pertinent History Genitourinary: No Pertinent History Musculoskeletal: Joint Replacement Female Surgical History: Section, Tubal Ligation Other Surgical History: RIGHT HIP REPLACMENT left hip replacement. back surgery 2019 - Social History Smoking Status: Never smoker How long have you smoked: 40 Exposure to second hand smoke: Yes Drug Use: none Patient Lives Alone: Yes - Female History Hx Now: No - Nursing Vital Signs Nursing Vital Signs: Initial Vital Signs Temperature 98.5 F 06/06/20 08:13 Pulse Rate 65 06/06/20 08:13 Respiratory Rate 18 06/06/20 08:13 Blood Pressure 220/141 06/06/20 08:13 O2 Sat by Pulse Oximetry 93 L 06/06/20 08:13 Pain Scale Pain Intensity 0 - Physical Exam General Appearance: no apparent distress, alert Eye Exam: PERRL/EOMI, eyes nml inspection Ears, Nose, Throat Exam: normal ENT inspection, moist mucous membranes Neck Exam: normal inspection, non-tender, supple, full range of motion Respiratory Exam: normal breath sounds, lungs clear, airway intact, No chest tenderness, No respiratory distress Cardiovascular Exam: regular rate/rhythm, normal heart sounds, normal peripheral pulses Gastrointestinal/Abdomen Exam: soft, normal bowel sounds, No tenderness Pelvic Exam: not done Rectal Exam: not done Back Exam: normal inspection, normal range of motion, No CVA tenderness, No vertebral tenderness Extremity Exam: normal inspection, normal range of motion, pelvis stable Neurologic Exam: alert, oriented x 3, cooperative, professional organizer II-XII nml as tested, normal mood/affect, nml cerebellar function, nml station & gait, sensation nml Skin Exam: normal color, warm, dry Lymphatic Exam: No adenopathy SpO2 Interpretation: borderline oxygenation SpO2: 93 O2 Delivery: Room Air - Course Nursing assessment & vital signs reviewed: Yes Ordered Tests: Active Orders 24 hr Category Date Time Status IV Insertion STAT Care 06/06/20 08:25 Active CBC W DIFF Stat Lab 06/06/20 08:15 Completed CMP Stat Lab 06/06/20 09:00 Completed MAG [MAGNESIUM] Stat Lab 06/06/20 09:00 Completed Medication Summary Generic Name Dose Route Start Last Admin Trade Name Freq PRN Reason Stop Dose Admin Sodium Chloride 500 mls @ 500 mls/hr 06/06/20 09:47 Sodium Chloride 0.9% 500 Ml IV 06/06/20 10:46 .Q1H ONE Lab/Rad Data: Laboratory Result Diagrams 06/06/20 08:15 06/06/20 09:00 Laboratory Results 06/06/20 06/06/20 06/06/20 Range/Units 09:00 09:00 08:15 WBC 7.2 (4.0-10.5) K/mm3 RBC 4.67 (4.1-5.4) M/mm3 Hgb 13.4 (12.0-16.0) gm/dl Hct 41.0 (35-47) % MCV 87.8 (78-100) fl MCH 28.7 (26-32) pg MCHC 32.7 (32-36) g/dl RDW 12.8 (11.5-14.0) % Plt Count 261 (150-450) K/mm3 MPV 10.4 (7.5-11.0) fl Gran % 59.5 (36.0-66.0) % Eos # (Auto) 0.16 (0-0.5) Absolute Lymphs (auto) 2.14 (1.0-4.6) Absolute Monos (auto) 0.59 (0.0-1.3) Lymphocytes % 29.8 (24.0-44.0) % Monocytes % 8.2 (0.0-12.0) % Eosinophils % 2.2 (0.00-5.0) % Basophils % 0.3 (0.0-0.4) % Absolute Granulocytes 4.27 (1.4-6.9) Basophils # 0.02 (0-0.4) Sodium 125 L (137-145) mmol/L Potassium 5.1 (3.5-5.1) mmol/L Chloride 91 L (98-107) mmol/L Carbon Dioxide 25 (22-30) mmol/L Anion Gap 14.2 (5-15) MEQ/L BUN 16 (7-17) mg/dL Creatinine 0.73 (0.52-1.04) mg/dL Estimated GFR > 60.0 ML/MIN Glucose 158 H (74-106) mg/dL Calcium 9.4 (8.4-10.2) mg/dL Magnesium 1.6 (1.6-2.3) mg/dL Total Bilirubin 0.30 (0.2-1.3) mg/dL AST 33 (14-36) U/L ALT 29 (0-35) U/L Alkaline Phosphatase 77 (38-126) U/L Serum Total Protein 7.5 (6.3-8.2) g/dL Albumin 4.6 (3.5-5.0) g/dL - Progress Progress: unchanged Progress Note: 06/06/20 09:51 Medical decision making: This patient is completely asymptomatic. She was sent here for evaluation for "abnormal labs". Patient does have a mild hyponatremia present. There are no other significant findings. I will provide the patient with some intravenous normal saline and check urine electrolytes and osmolality. I left a message for Dr. Pickens to call me back in the emergency department so I can update him on this patient she can follow-up with him to determine the course of plan for her whether it be added salt diet or fluid restriction. No other significant or critical labs present. Counseled pt/family regarding: lab results, diagnosis, need for follow-up - Departure Departure Disposition: Home Clinical Impression: Hyponatremia Condition: Stable Critical Care Time: No Referrals: ANETTE PICKENS MD [Primary Care Provider] - Additional Instructions: Continue your medication as prescribed. Follow-up with Dr. Pickens in his office for further management.
[2020-06-06 09:06] LABS: Absolute Neutrophil Ct (ANC) 4.27 (1.4-6.9); BASOPHIL % 0.3 % (0.0-0.4); Basophil (Absolute #) 0.02 (0-0.4); Eosinophil % 2.2 % (0.00-5.0); Eosinophil (Absolute #) 0.16 (0-0.5); Hemoglobin 13.4 gm/dl (12.0-16.0); Lymphocyte (Absolute #) 2.14 (1.0-4.6); Lymphocytes % 29.8 % (24.0-44.0); Mean Cell Volume 87.8 fl (78-100); Mean Corpuscular Hemoglobin 28.7 pg (26-32); Mean Corpuscular Hgb Concent. 32.7 g/dl (32-36); Mean Platelet Volume 10.4 fl (7.5-11.0); Monocyte (Absolute #) 0.59 (0.0-1.3); Monocytes % 8.2 % (0.0-12.0); Neutrophil % 59.5 % (36.0-66.0); Platelet Count 261 K/mm3 (150-450); Red Blood Count 4.67 M/mm3 (4.1-5.4); Red Cell Distribution Width 12.8 % (11.5-14.0); White Blood Count 7.2 K/mm3 (4.0-10.5)
[2020-06-06 09:23] LABS: ALBUMIN 4.6 g/dL (3.5-5.0); ALKALINE PHOSPHATASE 77 U/L (38-126); ANION GAP 14.2 MEQ/L (5-15); BLOOD UREA NITROGEN 16 mg/dL (7-17); CHLORIDE 91 mmol/L (98-107); Calcium 9.4 mg/dL (8.4-10.2); Carbon Dioxide 25 mmol/L (22-30); Creatinine 1 0.73 mg/dL (0.52-1.04); EST GLOMERULAR FILTRATION RATE > 60.0 ML/MIN; Glucose 158 mg/dL (74-106); Potassium 5.1 mmol/L (3.5-5.1); SGOT/AST 33 U/L (14-36); SGPT/ALT 29 U/L (0-35); SODIUM 125 mmol/L (137-145); Total Protein 7.5 g/dL (6.3-8.2)
[2020-06-06] MEDS ORDERED: Sodium Chloride 0.9% 500 ML 500 ML IV ONE ×3 (09:47→10:06)
[2020-06-06] MEDS ORDERED: Sodium Chloride 0.9% 1000 ML 0 ML ONE (10:05)
[2020-06-06] MEDS ORDERED: Levofloxacin 500 MG Tablet ONE (10:05)
[2020-06-06 10:30] VITALS: BP 173/101; PULSE 57; O2SAT 94
[2020-06-06 12:58] LABS: POTASSIUM, URINE RANDOM 42.2 mmol/L
== END 2020-06-06 11:00 | disposition home or self-care (01) ==
LOC: ED 08:04
DX: E87.1 Hypo-osmolality and hyponatremia (principal); E11.9 Type 2 diabetes mellitus without complications; E78.5 Hyperlipidemia, unspecified; I10 Essential (primary) hypertension; Z79.899 Other long term (current) drug therapy
CPT/HCPCS: 36000; 36415; 80053; 83735; 83935; 84133; 84300; 85025; 96360; 99284; A9270-GY

== ENCOUNTER 2024-07-20 11:57 | Emergency (ER) | payer MEDICARE ==
[2024-07-20] MEDS ORDERED: XYLOCAINE 1% HCL 20 ML MDV IJ ONE (11:58)
[2024-07-20 12:11] VITALS: PULSE 73; TEMP 97.6; O2SAT 96
[2024-07-20 12:55] VITALS: BP 136/56
--- NOTE | 2024-07-20 12:55 | ERPHSYRPT ---
- History of Present Illness Source: patient Exam Limitations: no limitations Patient Subjective Stated Complaint: pt was carrying in groceries and a jar of spaghetti sauce broke and cut her left lateral medial calf measuring 4 cm x 0.5 cm Triage Nursing Assessment: Pt was brought to the ER by her son, hypertensive, denies pain, mildly bleeding at this time, pulses normal, skin n/w/d, tetanus shot a couple of months ago from [facility], denies any other issues Physician History: Patient's grocery bag broke in a glass jar brannon fell and broke and she cut her left leg on it. Is a superficial incision. Goes into the subcutaneous tissue but not into the nerves vessels tendons or bone or anything of significance. It is about 4 to 5 cm in length. It is gaping just a little bit. Bleeding is well-controlled. Nothing makes his symptoms better or worse. She has no other traumas. She is up-to-date on her tetanus shot. Allergies/Adverse Reactions: gabapentin Allergy (Mild, Verified 07/20/24 12:11) Itching Home Medications: Aspirin [Aspir 81] 81 mg PO DAILY 09/29/11 [History] Atorvastatin Calcium [Lipitor 40Mg] 80 mg PO DAILY 06/28/15 [History] Clopidogrel Bisulfate [PLAVIX 75 MG Tablet] 75 mg PO DAILY 06/28/15 [History] Loratadine 10 mg [Claritin 10 mg] 10 mg PO DAILY 12/20/16 [History] Metoprolol Tartrate 50 mg PO BID 12/20/16 [History] lisinopriL [Zestril] 30 mg PO BID 12/20/16 [History] Amlodipine Besylate [Norvasc] 5 mg PO DAILY 06/06/20 [History] Omeprazole 20 mg PO DAILY 06/06/20 [History] Calcium Carbonate/Vitamin D3 [Calcium 600 with Vit D Chew Tb] 1 tab PO BID 07/02/21 [History] Hx Tetanus, Diphtheria Vaccination/Date Given: Yes Hx Influenza Vaccination/Date Given: Yes Hx Pneumococcal Vaccination/Date Given: No Travel Risk - International Travel Have you traveled outside of the country in past 3 weeks: No - Emerging Infectious Disease Are you exhibiting symptoms associated with any current EIDs: No - Review of Systems Constitutional: No Symptoms All Other Systems: Reviewed and Negative - Past Medical History Pertinent Past Medical History: Yes Neurological History: Peripheral Neuropathy ENT History: No Pertinent History Cardiac History: Coronary Artery Disease, High Cholesterol, Hypertension Respiratory History: COPD Endocrine Medical History: Diabetes Type II Musculoskeletal History: Osteoarthritis GI Medical History: GERD History: No Pertinent History Psycho-Social History: No Pertinent History Female Reproductive Disorders: No Pertinent History Other Medical History: PSH: BACK SX, , R ESE 14', L ESE 17', HEART CATH AND STENTS. PMH: SMOKING HISTORY - Past Surgical History Past Surgical History: Yes Neuro Surgical History: No Pertinent History Cardiac: Cardiac Catheterization, Cardiac Stent Respiratory: No Pertinent History Gastrointestinal: No Pertinent History Genitourinary: No Pertinent History Musculoskeletal: Joint Replacement Female Surgical History: Section, Tubal Ligation Other Surgical History: RIGHT HIP REPLACMENT left hip replacement. back surgery 2019 - Social History Smoking Status: Former smoker How long have you smoked: 40 Exposure to second hand smoke: Yes Drug Use: none - Social Determinants of Health Will the patient participate in the screening: Yes Do you worry about a steady place to live?: No Do you have any problems with any of the following?: No known problems In the past 12 months,have you had to go without utilities?: No Transportation Issues: No Has anyone in your support network made you feel unsafe?: No Have you or anyone in your house had to go w/o enough food: No - Nursing Vital Signs Nursing Vital Signs: Initial Vital Signs Temperature 97.6 F 07/20/24 12:06 Pulse Rate 73 07/20/24 12:06 Blood Pressure 160/87 07/20/24 12:06 O2 Sat by Pulse Oximetry 96 07/20/24 12:06 Pain Scale Pain Intensity 0 - Physical Exam General Appearance: no apparent distress Legs Exam: left leg: other (4-1/2 cm laceration on the left lateral lower leg. It was described in the HPI.) Neuro/Tendon Exam: normal sensation, normal motor functions, normal tendon functions, responds to pain, no evidence tendon injury, No tendon function deficit, No tendon injury visualized Skin Exam: normal color SpO2: 96 - Course Nursing assessment & vital signs reviewed: Yes - Progress Progress: unchanged Progress Note: Procedure note the area was anesthetized with 1% lidocaine. I then thoroughly scrubbed and irrigated. It was explored in a bloodless field. It was into the subcutaneous tissue but there was no involvement of nerves vessels tendons bones muscles or fascial tissue. The wound was then repaired in sterile fashion. 4-0 Ethilon was used in running fashion. About 15 sutures were placed. Good wound closure was obtained. A dressing was placed. Will have her do dressing changes 2-3 times a day for 2 days and then dry dressings after that. 07/20/24 12:53 - Departure Departure Disposition: Home Clinical Impression: Laceration of left leg Condition: Stable Critical Care Time: No Referrals: ANETTE PICKENS MD [Primary Care Provider, [facility]] - Follow up/PCP as directed Instructions: Laceration Repair With Stitches (DC), Wound Care (DC)
== END 2024-07-20 12:57 | disposition home or self-care (01) ==
LOC: ED 11:57
DX: S81.812A Laceration without foreign body, left lower leg, initial encounter (principal); W25.XXXA Contact with sharp glass, initial encounter; E78.5 Hyperlipidemia, unspecified; I10 Essential (primary) hypertension; E11.42 Type 2 diabetes mellitus with diabetic polyneuropathy; Z79.02 Long term (current) use of antithrombotics/antiplatelets; Z79.899 Other long term (current) drug therapy
CPT/HCPCS: 12002; 99281; 99283

== ENCOUNTER 2024-07-20 17:08 | Emergency (ER) | payer MEDICARE, SELFPAY ==
[2024-07-20 17:21] VITALS: TEMP 97.8
--- NOTE | 2024-07-20 17:48 | ERPHSYRPT ---
- History of Present Illness Source: patient Exam Limitations: no limitations Patient Subjective Stated Complaint: PT HERE FOR LOW MAG LEVELS, SHE HAD LABS DONE TODAY, Triage Nursing Assessment: PT ALERT, WLAKED IN, RESP EASY, SKIN W/D/P. NO COUGH, NO EDEMA,DENIES ANY CO'S Physician History: Patient is asymptomatic. She has a surgery scheduled next week and got routine labs. They found her magnesium to be 0.8. She is asymptomatic they sent her into the have her magnesium replaced. She has no palpitations or cardiac issues. Allergies/Adverse Reactions: gabapentin Allergy (Mild, Verified 07/20/24 17:14) Itching Home Medications: Aspirin [Aspir 81] 81 mg PO DAILY 09/29/11 [History] Atorvastatin Calcium [Lipitor 40Mg] 80 mg PO DAILY 06/28/15 [History] Clopidogrel Bisulfate [PLAVIX 75 MG Tablet] 75 mg PO DAILY 06/28/15 [History] Loratadine 10 mg [Claritin 10 mg] 10 mg PO DAILY 12/20/16 [History] Metoprolol Tartrate 50 mg PO BID 12/20/16 [History] lisinopriL [Zestril] 30 mg PO BID 12/20/16 [History] Amlodipine Besylate [Norvasc] 5 mg PO DAILY 06/06/20 [History] Omeprazole 20 mg PO DAILY 06/06/20 [History] Calcium Carbonate/Vitamin D3 [Calcium 600 with Vit D Chew Tb] 1 tab PO BID 07/02/21 [History] Hx Tetanus, Diphtheria Vaccination/Date Given: No Hx Influenza Vaccination/Date Given: No Hx Pneumococcal Vaccination/Date Given: No Immunizations Up to Date: Yes Travel Risk - International Travel Have you traveled outside of the country in past 3 weeks: No - Emerging Infectious Disease Are you exhibiting symptoms associated with any current EIDs: No - Review of Systems Constitutional: No Symptoms All Other Systems: Reviewed and Negative - Past Medical History Pertinent Past Medical History: Yes Neurological History: Peripheral Neuropathy ENT History: No Pertinent History Cardiac History: Coronary Artery Disease, High Cholesterol, Hypertension Respiratory History: COPD Endocrine Medical History: Diabetes Type II Musculoskeletal History: Osteoarthritis GI Medical History: GERD History: No Pertinent History Psycho-Social History: No Pertinent History Female Reproductive Disorders: No Pertinent History Other Medical History: PSH: BACK SX, , R ESE 14', L ESE 17', HEART CATH AND STENTS. PMH: SMOKING HISTORY - Past Surgical History Past Surgical History: Yes Neuro Surgical History: No Pertinent History Cardiac: Cardiac Catheterization, Cardiac Stent Respiratory: No Pertinent History Gastrointestinal: No Pertinent History Genitourinary: No Pertinent History Musculoskeletal: Joint Replacement Female Surgical History: Section, Tubal Ligation Other Surgical History: RIGHT HIP REPLACMENT left hip replacement. back surgery 2019 - Social History Smoking Status: Former smoker How long have you smoked: 40 Exposure to second hand smoke: Yes Drug Use: none - Social Determinants of Health Will the patient participate in the screening: Yes Do you worry about a steady place to live?: No Do you have any problems with any of the following?: No known problems In the past 12 months,have you had to go without utilities?: No Transportation Issues: No Has anyone in your support network made you feel unsafe?: No Have you or anyone in your house had to go w/o enough food: No - Nursing Vital Signs Nursing Vital Signs: Initial Vital Signs Temperature 97.8 F 07/20/24 17:20 Pulse Rate 64 07/20/24 17:20 Respiratory Rate 18 07/20/24 17:20 Blood Pressure 174/88 07/20/24 17:20 O2 Sat by Pulse Oximetry 95 07/20/24 17:20 Pain Scale Pain Intensity 0 - Physical Exam General Appearance: no apparent distress Eye Exam: PERRL/EOMI Respiratory Exam: normal breath sounds Cardiovascular Exam: regular rate/rhythm Gastrointestinal/Abdomen Exam: soft, normal bowel sounds Pelvic Exam: not done Rectal Exam: deferred Extremity Exam: normal inspection Neurologic Exam: alert, oriented x 3 Skin Exam: normal color, warm SpO2: 95 - Course Nursing assessment & vital signs reviewed: Yes EKG Interpreted by Me: RATE, NORMAL AXIS, NORMAL INTERVALS, NORMAL QRS, Non- specific ST Changes Ordered Tests: Active Orders 24 hr Category Date Time Status MAG [MAGNESIUM] Stat Lab 07/20/24 20:10 Completed Medication Summary Generic Name Dose Route Start Last Admin Trade Name Freq PRN Reason Stop Dose Admin Magnesium Sulfate/Dextrose 100 mls @ 100 mls/hr 07/20/24 18:00 07/20/24 19:57 Magnesium 1 Gm / 100 Ml D5w IV 07/20/24 19:59 Infused Q1H MARGARITA Infusion Discontinued Medications Generic Name Dose Route Start Last Admin Trade Name Freq PRN Reason Stop Dose Admin Magnesium Sulfate/Water 2 gm in 50 mls @ 100 mls/hr 07/20/24 17:52 07/20/24 17:58 Magnesium Sulf 2 G/50 Ml Bag IV 07/20/24 18:21 Not Given ONCE ONE Lab/Rad Data: Laboratory Results 07/20/24 Range/Units 20:10 Magnesium 1.8 (1.6-2.3) mg/dL - Progress Progress: unchanged Progress Note: I spoke with the hospitalist. What Candie do is give her a 2 g infusion and then recheck it. If it is greater than 1.2 we can send her home on oral replacements if it is not we will admit her.Her repeat magnesium was 1.8. I went to have her take [id number] magnesium sulfate for her milligrams twice daily. She has a follow-up with her primary doctor. 07/20/24 17:48 07/20/24 20:31 Medical Desision Making - Social Determinants of Health Limited access to: transportation - Diagnostic Testing Diagnostic test were ordered, analyzed, and reviewed by me: Yes - Risk of complications Minimal Risk: Minimal risk of morbidity - Departure Departure Disposition: Home Clinical Impression: Hypomagnesemia Condition: Stable Critical Care Time: No Referrals: ANETTE PICKENS MD [Primary Care Provider, [facility]] - Follow up/PCP as directed Additional Instructions: Take 400 mg of magnesium sulfate twice a day and follow-up with your primary care doctor.You can get that [id number]
[2024-07-20] MEDS ORDERED: Magnesium 1 Gm / 100 Ml D5W*** 200 ML IV ONE (17:57)
[2024-07-20] MEDS: MAGNESIUM SULF 2 G/50 ML BAG 2 GM/50 ML PIGGYBACK IV ONE (17:58)
[2024-07-20] MEDS: Magnesium 1 Gm / 100 Ml D5W*** 100 ML IV SCH (18:00)
[2024-07-20 20:16] VITALS: BP 158/73; PULSE 56; RESP 17
[2024-07-20 20:33] VITALS: O2SAT 95
== END 2024-07-20 20:45 | disposition home or self-care (01) ==
LOC: ED 17:08
DX: E83.42 Hypomagnesemia (principal); E78.5 Hyperlipidemia, unspecified; I10 Essential (primary) hypertension; E11.42 Type 2 diabetes mellitus with diabetic polyneuropathy; Z79.02 Long term (current) use of antithrombotics/antiplatelets; Z79.899 Other long term (current) drug therapy
CPT/HCPCS: 36415; 83735; 96365; 96366; 99284; 99285; J3475

== ENCOUNTER 2025-01-08 19:04 | Emergency (ER) | payer MEDICARE ==
[2025-01-08 19:32] VITALS: TEMP 97.2
[2025-01-08 19:59] LABS: BASOPHIL % 0.4 % (0.1-1.2); Basophil (Absolute #) 0.04 x10^3/uL (0.01-0.08); Eosinophil (Absolute #) 0.25 x10^3/uL (0.04-0.36); Hematocrit 38.7 % (34.1-44.9); Hemoglobin 13.2 g/dL (11.2-15.7); IMMATURE GRAN # 0.02 x10^3u/L (0.001-0.031); IMMATURE GRAN % 0.2 % (0.001-0.429); Lymphocyte (Absolute #) 2.56 x10^3/uL (1.18-3.74); Mean Corpuscular Hemoglobin 30.1 pg (25.6-32.2); Mean Corpuscular Hgb Concent. 34.1 g/dL (32.2-35.5); Monocyte (Absolute #) 0.72 x10^3/uL (0.24-0.86); NUCLEATED RBC # 0.00 x10^3u/L (0.00-0.012); NUCLEATED RBC % 0.0 % (0.00-0.2); Platelet Count 245 x10^3/uL (182-369); Red Blood Count 4.39 x10^6/uL (3.93-5.22); White Blood Count 9.4 x10^3/uL (3.98-10.04)
[2025-01-08 20:12] LABS: Calcium 9.3 mg/dL (8.4-10.2); Carbon Dioxide 25.0 mmol/L (22-30); Creatinine 1 0.71 mg/dL (0.52-1.04); EST GLOMERULAR FILTRATION RATE 91.4 ML/MIN; Glucose 126.0 mg/dL (74-106); Potassium 4.3 mmol/L (3.5-5.1); SGOT/AST 32.0 U/L (14-36); SGPT/ALT 26.0 U/L (0-35); Total Protein 7.8 g/dL (6.3-8.2)
--- NOTE | 2025-01-08 20:51 | ERPHSYRPT ---
- History of Present Illness Time Seen by Provider: 01/08/25 19:45 Source: patient Exam Limitations: no limitations Patient Subjective Stated Complaint: c/o abnormal labs Triage Nursing Assessment: patient brought to ED after receiving call today that she has abnormal labs. Patient has labs drawn on the . patient denies pain, denies chest pain, states she feels okay but wanted to get checked out. patient gait steady, hypertensive, EKG done on arrival, skin w/n/d, afebrile, dpesn't appear to be in any distress at this time. Physician History: Patient is a 69-year-old female history of hypertension hyperlipidemia type 2 diabetes coronary artery disease COPD GERD arthritis presents to our ED as a referral from her primary care doctor for evaluation of abnormal labs. Patient's sodium is 127. However patient is asymptomatic. No chest pain or shortness of breath. No nausea vomiting or diaphoresis. No weakness or muscle cramping. Patient afebrile tolerating p.o. no change in urine output patient is comfortable and in no distress. Portions of this note were created with voice recognition technology. There may be grammatical, spelling, punctuation or sound alike errors Timing/Duration: today Severity: moderate Modifying Factors: Improves With: nothing Associated Symptoms: denies symptoms Allergies/Adverse Reactions: gabapentin Allergy (Mild, Verified 01/08/25 19:24) Itching Home Medications: Aspirin [Aspir 81] 81 mg PO DAILY 09/29/11 [History] Atorvastatin Calcium [Lipitor 40Mg] 80 mg PO DAILY 06/28/15 [History] Clopidogrel Bisulfate [PLAVIX 75 MG Tablet] 75 mg PO DAILY 06/28/15 [History] Loratadine 10 mg [Claritin 10 mg] 10 mg PO DAILY 12/20/16 [History] Metoprolol Tartrate 50 mg PO BID 12/20/16 [History] lisinopriL [Zestril] 30 mg PO BID 12/20/16 [History] Amlodipine Besylate [Norvasc] 5 mg PO DAILY 06/06/20 [History] Omeprazole 20 mg PO DAILY 06/06/20 [History] Calcium Carbonate/Vitamin D3 [Calcium 600 with Vit D Chew Tb] 1 tab PO BID 07/02/21 [History] Blood-Glucose Sensor [Dexcom G6 Sensor] 1 applic SQ .[id number] 01/08/25 [History] Hx Tetanus, Diphtheria Vaccination/Date Given: Yes Hx Influenza Vaccination/Date Given: Yes Hx Pneumococcal Vaccination/Date Given: Yes Travel Risk - International Travel Have you traveled outside of the country in past 3 weeks: No - Emerging Infectious Disease Are you exhibiting symptoms associated with any current EIDs: No - Review of Systems All Other Systems: Reviewed and Negative - Past Medical History Pertinent Past Medical History: Yes Neurological History: No Pertinent History ENT History: No Pertinent History Cardiac History: Coronary Artery Disease, High Cholesterol, Hypertension Respiratory History: COPD Endocrine Medical History: Diabetes Type II Musculoskeletal History: Degenerative Disk Disease, Osteoarthritis GI Medical History: GERD History: No Pertinent History Psycho-Social History: No Pertinent History Female Reproductive Disorders: No Pertinent History Other Medical History: SX HX: CARDIAC STENTS X 2, BILATERAL HIP REPLACEENTS (MOST RECENT RIGHT 2013, LEFT APPROXIMATELY 2015)., LUMBAR FUSION (ONE SEGMENT). - Past Surgical History Past Surgical History: Yes Neuro Surgical History: No Pertinent History Cardiac: Cardiac Catheterization, Cardiac Stent Respiratory: No Pertinent History Gastrointestinal: No Pertinent History Genitourinary: No Pertinent History Musculoskeletal: Joint Replacement Female Surgical History: Section, Tubal Ligation Other Surgical History: RIGHT HIP REPLACMENT left hip replacement. back surgery 2019 - Social History Smoking Status: Former smoker How long have you smoked: 40 Exposure to second hand smoke: Yes Drug Use: none - Social Determinants of Health Will the patient participate in the screening: Yes Do you worry about a steady place to live?: No Do you have any problems with any of the following?: No known problems In the past 12 months,have you had to go without utilities?: No Transportation Issues: No Has anyone in your support network made you feel unsafe?: No Have you or anyone in your house had to go w/o enough food: No - Nursing Vital Signs Nursing Vital Signs: Initial Vital Signs Temperature 97.2 F 01/08/25 19:25 Pulse Rate 63 01/08/25 19:25 Respiratory Rate 18 01/08/25 19:25 Blood Pressure 189/79 01/08/25 19:25 O2 Sat by Pulse Oximetry 95 01/08/25 19:25 Pain Scale Pain Intensity 0 - Physical Exam General Appearance: no apparent distress, alert Eye Exam: PERRL/EOMI, eyes nml inspection Ears, Nose, Throat Exam: normal ENT inspection, moist mucous membranes Neck Exam: normal inspection, full range of motion Respiratory Exam: normal breath sounds, lungs clear, airway intact, No respiratory distress Cardiovascular Exam: regular rate/rhythm, normal heart sounds, normal peripheral pulses Gastrointestinal/Abdomen Exam: soft, normal bowel sounds, No tenderness, No mass Back Exam: normal inspection, normal range of motion, No CVA tenderness, No vertebral tenderness Extremity Exam: normal inspection, normal range of motion, pelvis stable Neurologic Exam: alert, oriented x 3, cooperative, normal mood/affect, sensation nml, No motor deficits Skin Exam: normal color, warm, dry, No rash Lymphatic Exam: No adenopathy SpO2 Interpretation: normal SpO2: 95 O2 Delivery: Room Air - Course Nursing assessment & vital signs reviewed: Yes EKG Interpreted by Me: RATE (61), Sinus Rhythm, NORMAL AXIS, NORMAL INTERVALS, NORMAL QRS Ordered Tests: Active Orders 24 hr Category Date Time Status CBC W DIFF Stat Lab 01/08/25 19:50 Completed CMP Stat Lab 01/08/25 19:50 Completed MAG [MAGNESIUM] Stat Lab 01/08/25 19:50 Completed Medication Summary Generic Name Dose Route Start Last Admin Trade Name Freq PRN Reason Stop Dose Admin Magnesium Sulfate/Dextrose 100 mls @ 100 mls/hr 01/08/25 21:30 01/08/25 22:30 Magnesium 1 Gm / 100 Ml D5w IV 01/08/25 23:29 Infused Q1H MARGARITA Infusion Discontinued Medications Generic Name Dose Route Start Last Admin Trade Name Freq PRN Reason Stop Dose Admin Sodium Chloride 1,000 mls @ 999 mls/hr 01/08/25 20:42 01/08/25 21:47 Sodium Chloride 0.9% 1000 Ml IV 01/08/25 21:42 Infused .Q1H1M STA Infusion Sodium Chloride Confirm 01/08/25 20:43 Sodium Chloride 0.9% 1000 Ml Administered 01/08/25 20:44 Dose 1,000 mls @ ud .ROUTE .[facility] Lab/Rad Data: Laboratory Result Diagrams 01/08/25 19:50 01/08/25 19:50 Laboratory Results 01/08/25 01/08/25 01/08/25 Range/Units 19:50 19:50 19:50 WBC 9.4 (3.98-10.04) x10^3/uL RBC 4.39 (3.93-5.22) x10^6/uL Hgb 13.2 (11.2-15.7) g/dL Hct 38.7 (34.1-44.9) % MCV 88.2 (79.4-94.8) fL MCH 30.1 (25.6-32.2) pg MCHC 34.1 (32.2-35.5) g/dL RDW 13.0 (11.7-14.4) % Plt Count 245 (182-369) x10^3/uL MPV 9.5 (9.4-12.3) fL Gran % 61.6 (34.0-71.1) % Immature Gran % (Auto) 0.2 (0.001-0.429) % Nucleat RBC Rel Count 0.0 (0.00-0.2) % Eos # (Auto) 0.25 (0.04-0.36) x10^3/uL Immature Gran # (Auto) 0.02 (0.001-0.031) x10^3u/L Absolute Lymphs (auto) 2.56 (1.18-3.74) x10^3/uL Absolute Monos (auto) 0.72 (0.24-0.86) x10^3/uL Absolute Nucleated RBC 0.00 (0.00-0.012) x10^3u/L Lymphocytes % 27.4 (19.3-51.7) % Monocytes % 7.7 (4.7-12.5) % Eosinophils % 2.7 (0.7-5.8) % Basophils % 0.4 (0.1-1.2) % Absolute Granulocytes 5.76 (1.56-6.13) x10^3/uL Basophils # 0.04 (0.01-0.08) x10^3/uL Sodium 123 L (135-145) mmol/L Potassium 4.3 (3.5-5.1) mmol/L Chloride 88 L (98-107) mmol/L Carbon Dioxide 25 (22-30) mmol/L Anion Gap 13.9 (5-15) MEQ/L BUN 23 H (7-17) mg/dL Creatinine 0.71 (0.52-1.04) mg/dL Estimated GFR 91.4 ML/MIN Glucose 126 H (74-106) mg/dL Calcium 9.3 (8.4-10.2) mg/dL Magnesium 1.6 (1.6-2.3) mg/dL Total Bilirubin 0.40 (0.2-1.3) mg/dL AST 32 (14-36) U/L ALT 26 (0-35) U/L Alkaline Phosphatase 118 (38-126) U/L Serum Total Protein 7.8 (6.3-8.2) g/dL Albumin 4.7 (3.5-5.0) g/dL - Progress Progress: improved Progress Note: 01/08/25 20:54 Patient is a 69-year-old female history of hypertension hyperlipidemia type 2 diabetes coronary artery disease COPD GERD arthritis presents to our ED as a referral from her primary care doctor for evaluation of abnormal labs. Patient's sodium is 127. Workup reveals hyponatremia and suggestive of dehydration. Patient received 1 L of normal saline. Potassium 4.3. Patient asymptomatic. History obtained from patient. Differential diagnosis includes hypotonic hyponatremia, hypovolemic hyponatremia SIADH Complexity of problems addressed is moderate acute complicated. No critical care time. Complex of data reviewed and analyzed is moderate. Test ordered chest reviewed results analyzed and correlated clinically with history and physical exam. Risk of complication and or risk of morbidity/mortality of patient management is low. Vital stable. Time spent to admit patient is approximately 15 minutes. Plan of care established for shared decision making. No social determinants of health present to impede follow-up. Portions of this note were created with voice recognition technology. There may be grammatical, spelling, punctuation or sound alike errors 01/08/25 20:55 IV fluids infused. Magnesium replaced. Patient asymptomatic. Patient will be discharged home. We will contact Dr. Pickens's office in the morning to arrange outpatient follow-up by Tuesday for repeat labs to reassess her electrolytes. Patient dates he is ready for discharge. She voices no other complaints or concerns at this time. Portions of this note were created with voice recognition technology. There may be grammatical, spelling, punctuation or sound alike errors 01/08/25 23:30 Counseled pt/family regarding: lab results, diagnosis, need for follow-up - Departure Departure Disposition: Home Clinical Impression: Hyponatremia, Dehydration, Hypomagnesemia Condition: Stable Critical Care Time: No Referrals: ANETTE PICKENS MD [Primary Care Provider, [facility]] - Follow up/PCP as directed Instructions: Dehydration, Adult (DC), Hyponatremia, Hypomagnesemia Additional Instructions: Discharge/Care Plan SHANNON HAINES was seen on 01/08/25 in the Emergency Room. The patient was counseled regarding Diagnosis,Lab results, Imaging studies, need for follow up and when to return to the Emergency Room. Prescriptions given: Discharge Note I have spoken with the patient and/or caregivers. I have explained the patient's condition, diagnosis and treatment plan based on the information available to me at this time. I have answered the patient's and/or caregiver's questions and addressed any concerns. The patient and/or caregivers have as good understanding of the patient's diagnosis, condition and treatment plan as can be expected at this point. The vital signs have been stable. The patient's condition is stable and appropriate for discharge from the emergency department. The patient will pursue further outpatient evaluation with the primary care physician or other designated or consulting physician as outlined in the discharge instructions. The patient and/or caregivers are agreeable to this plan of care and follow-up instructions have been explained in detail. The patient and/or caregivers have received these instruction. The patient/and or caregivers are aware that any significant change in condition or worsening of symptoms should prompt an immediate return to this or the closest emergency department or call 911.
[2025-01-08 21:23] VITALS: O2SAT 95
[2025-01-08] MEDS ORDERED: Magnesium 1 Gm / 100 Ml D5W*** 100 ML IV ONE ×2 (21:23→21:59)
[2025-01-08] MEDS: Magnesium 1 Gm / 100 Ml D5W*** 100 ML IV SCH (21:24)
[2025-01-08 22:05] VITALS: RESP 18
[2025-01-08 23:33] VITALS: BP 166/84
[2025-01-09 09:47] VITALS: PULSE 70
== END 2025-01-08 23:35 | disposition home or self-care (01) ==
LOC: ED 19:04
DX: E87.1 Hypo-osmolality and hyponatremia (principal); E86.0 Dehydration; E83.42 Hypomagnesemia; I10 Essential (primary) hypertension; E11.9 Type 2 diabetes mellitus without complications; Z79.02 Long term (current) use of antithrombotics/antiplatelets; Z79.899 Other long term (current) drug therapy

== ENCOUNTER 2025-01-30 15:19 | Day surgery (SDC) | payer MEDICARE ==
[2025-01-30] MEDS ORDERED: LIDOCAINE HCL 1% 50 MG/5 ML VL IJ ONE (15:20)
[2025-01-30] MEDS ORDERED: methylPREDNISolone acetate IM ONE (15:20)
[2025-01-30] MEDS ORDERED: BUPIVACAINE 0.5% VIAL IJ ONE (15:20)
--- NOTE | 2025-01-31 08:43 | XRAY ---
Indication: Right knee injection. Intraoperative fluoroscopy provided for 9 seconds. Single digital spot image submitted for interpretation demonstrates needle tip projecting over right femur intercondylar notch. Small amount of contrast injected for needle tip placement. Correlate with intraoperative findings/report.
--- NOTE | 2025-01-31 09:35 | XRAY ---
9 seconds of fluoroscopy was used in surgery for a right intra-articular knee injection.
== END 2025-01-30 18:50 | disposition home or self-care (01) ==
LOC: SDC-PAIN 15:19
PROVIDERS: ATTEND Psychiatry & Neurology Pain Medicine
DX: M17.11 Unilateral primary osteoarthritis, right knee (principal); E11.9 Type 2 diabetes mellitus without complications